=== PATIENT | male | born 1965 | race Caucasian/White ===

== ENCOUNTER 2020-02-06 05:36 | Outpatient (RCR) | payer BC ==
[~2020-02-06] VITALS: Ht 170.2 cm; Wt 145.5 kg
[2020-02-06 11:48] VITALS: BP 128/71
[2020-02-06] MEDS ORDERED: EPLE25TA4 PO (11:57)
[2020-02-06] MEDS ORDERED: AMIO400T5 PO (12:14)
[2020-02-06] MEDS ORDERED: RIVA20TA PO (12:14)
[2020-02-06] MEDS ORDERED: ATOR40TA70 PO (12:14)
[2020-02-06] MEDS ORDERED: FURO-124 PO (12:14)
[2020-02-06] MEDS ORDERED: CLOP75TA69 PO (12:14)
[2020-02-06] MEDS ORDERED: CARV25TA PO (12:14)
[2020-02-06] MEDS ORDERED: SACU1TAB2 PO (12:14)
[2020-02-11] MEDS ORDERED: ACET1TAB43 PO (11:50)
[2020-02-11] MEDS ORDERED: SULF1TAB34 PO (11:50)
== END 2020-02-06 14:05 | disposition home or self-care (01) ==
LOC: PREOP 05:36
PROVIDERS: ATTEND Radiology Radiation Oncology
DX: Z01.812 Encounter for preprocedural laboratory examination (principal); Z20.828 Contact with and (suspected) exposure to other viral communicable diseases; C61 Malignant neoplasm of prostate
CPT/HCPCS: 87081; 87635

== ENCOUNTER 2020-02-11 10:37 | Day surgery (SDC) | payer BC ==
[2020-02-11] VITALS (9 sets, daily range): BP systolic 117–148; BP diastolic 77–95
[~2020-02-11] VITALS: Ht 170.2 cm; Wt 145.5 kg
[~2020-02-11 10:37] MED LIST: AMIO400T5 PO; ATOR40TA70 PO; CARV25TA PO; CLOP75TA69 PO; EPLE25TA4 PO; FURO-124 PO; RIVA20TA PO; SACU1TAB2 PO
[2020-02-11] MEDS ORDERED: LACTATED RINGERS 1,000 ML IV PRN (10:41)
[2020-02-11] MEDS ORDERED: LEVOFLOXACIN 500 MG/100 ML IV 100 ML IV ONE (10:45)
--- OUTSIDE RECORDS SUMMARY | 2020-02-11 11:19 | XMS REPORT | Continuity of Care Document ---
Author Organization Unknown Address Unknown Phone Unavailable Allergies Active Description Code Type Severity Reaction Onset Reported/Identified Relationship to Patient Clinical Status Yes No Known Drug Allergies [id number] Drug Allergy Unknown N/A 02/06/2020 Medications There is no data. Problems Date Dx Coded Attending Type Code Diagnosis Diagnosed By 01/23/2020 FABIAN FISH MD, Ot C61 MALIGNANT NEOPLASM OF PROSTATE 01/29/2020 FABIAN FISH MD, Ot C61 MALIGNANT NEOPLASM OF PROSTATE 02/06/2020 FABIAN FISH MD, Ot C61 MALIGNANT NEOPLASM OF PROSTATE 02/10/2020 FABIAN FISH MD, Ot C61 MALIGNANT NEOPLASM OF PROSTATE Procedures There is no data. Results Test Result Range Methicillin resistant Staphylococcus aur eus (MRSA) screening culture - 02/06/20 12:05 Methicillin resistant Staphylococcus aureus (MRSA) scr eening culture NEG NRG Coronavirus SARS-CoV-2 SO 2018 - 0 12:40 Coronavirus Ab [Units/volume] in Serum Negative Negative Encounters ACCT No. Visit Date/Time Discharge Status Pt. Type Provider Facility Loc./Unit Complaint [id number] 02/06/2020 05:36:00 020 14:05:00 DIS Outpatient FABIAN FISH MD [facility] PREOP PROSTATE CANCER [id number] 12/31/2019 10:37:00 020 23:59:59 CLS Outpatient FABIAN FISH MD [facility] ONC [id number] 02/11/2020 10:37:[address] Outpatient FABIAN FISH MD [facility] PROSTATE CANCER
--- NOTE | 2020-02-11 11:42 | Progress Note-Pre Operative ---
Pre-Operative Progress Note H&P Reviewed The H&P was reviewed, patient examined and no changes noted. Date Seen by Provider: Feb 11, 2020 Time Seen by Provider: 11:41 Date H&P Reviewed: Feb 11, 2020 Time H&P Reviewed: 11:41 Pre-Operative Diagnosis: Prostate cancer cT1c, PSA 6.7, [place] 7 (3+4) FABIAN FISH MD Feb 11, 2020 11:42
[2020-02-11] MEDS ORDERED: SULF1TAB34 PO (11:50)
[2020-02-11] MEDS ORDERED: ACET1TAB43 PO (11:50)
--- NOTE | 2020-02-11 11:54 | Discharge Inst-Simple/Standard ---
Discharge Inst-Standard Reconcile Patient Problems Problems Reviewed?: Yes Discharge Medications New, Converted or Re-Newed RX: RX Given to Pt/Family Patient Instructions/Follow Up Plan of Care/Instructions/FU: 1) One month post implant scan at [facility] 03/10/20 at 10:00 am 2) One month post implant f/u with Dr. Chavez 03/10/20 at 1:35 pm Activity as Tolerated: Yes Discharge Diet: No Restrictions Other Inst to Patient Please instruct patient on corcoran catheter removal. Date to be determined by Dr. Foley. FABIAN FISH MD Feb 11, 2020 11:54
[2020-02-11] MEDS ORDERED: BACITRACIN OINTMENT 28 GM TUBE ONE (12:07)
[2020-02-11] MEDS ORDERED: ONDANSETRON 4 MG/2 ML (SDV) Z0FRAN ONE (12:12)
[2020-02-11] MEDS ORDERED: LIDOCAINE PF 2% 5 ML (XYLOCAINE) VIAL ONE (12:12)
[2020-02-11] MEDS ORDERED: SEVOFLURANE (ULTANE) 15 ML INHAL SOLN ONE (12:12)
[2020-02-11] MEDS ORDERED: fentaNYL INJECTION 100 MCG/2 ML AMP ONE ×2 (12:12→13:32)
[2020-02-11] MEDS ORDERED: proPOfol 200 MG/20 ML (DIPRIVAN) VIAL IV ONE (12:12)
[2020-02-11] MEDS ORDERED: MIDAZOLAM 2 MG/2 ML (VERSED) VIAL ONE (12:12)
[2020-02-11] MEDS ORDERED: DEXAMETHASONE 10 MG/ML (DECADRON) 1 ML VIAL ONE (12:12)
[2020-02-11] MEDS ORDERED: SUCCINYLCHOLINE INJ 100 MG/5 ML SYR ONE (12:26)
--- NOTE | 2020-02-11 14:35 | Progress Note-Post Operative ---
Post-Operative Progess Note Surgeon (s)/Churn Drill Operator (s) Surgeon FABIAN FISH MD Churn Drill Operator: Radha PAYTON MD Pre-Operative Diagnosis Prostate cancer cT1c, PSA 6.7, [place] 7 (3+4) Post-Operative Diagnosis Same as pre-op Procedure & Operative Findings Date of Procedure 02/11/20 Procedure Performed/Findings (1)100% Cesium 131 permanent prostate seed implant (2) Injection of biodegradable hydrogel prostate-rectal spacer utilizing the SpaceOAR system (3) Cystogram Prostate volume 36.9 cc Anesthesia Type General Estimated Blood Loss Estimated blood loss (mL): Minimal Specimens/Packing Specimens Removed None Packing: None FABIAN FISH MD Feb 11, 2020 14:35
[2020-02-11] MEDS ORDERED: ONDANSETRON 4 MG/2 ML (SDV) Z0FRAN IVP PRN (14:45)
[2020-02-11] MEDS ORDERED: morphine INJ 10 MG/ML 1ML (SYR OR VIAL) IVP ONE (14:45)
--- NOTE | 2020-02-11 14:54 | Diagnostic Imaging Report ---
INDICATION: Fluoroscopy for brachytherapy. TECHNIQUE: Fluoroscopy was provided during brachytherapy. 11 seconds of fluoroscopic time was utilized. A single image was obtained demonstrating radiation seed implants within the prostate gland. IMPRESSION: Fluoroscopy for brachytherapy. Dictated by: Dictated on workstation # [id number]
--- NOTE | 2020-02-11 14:55 | Anesthesia-General Post-Op ---
General Patient Condition Mental Status/LOC: Same as Preop Cardiovascular: Satisfactory Nausea/Vomiting: Absent Respiratory: Satisfactory Pain: Controlled Complications: Absent Post Op Complications Complications None Follow Up Care/Instructions Patient Instructions None needed. Anesthesia/Patient Condition Patient Condition Patient is doing well, no complaints, stable vital signs, no apparent adverse anesthesia problems. ADRIANA MAURICE DO Feb 11, 2020 14:55
== END 2020-02-11 16:25 | disposition home or self-care (01) ==
LOC: SDC 10:37
PROVIDERS: ATTEND Radiology Radiation Oncology
DX: C61 Malignant neoplasm of prostate (principal); I25.10 Atherosclerotic heart disease of native coronary artery without angina pectoris; E78.5 Hyperlipidemia, unspecified; I11.0 Hypertensive heart disease with heart failure; I50.9 Heart failure, unspecified; E66.01 Morbid (severe) obesity due to excess calories; I73.9 Peripheral vascular disease, unspecified; I77.9 Disorder of arteries and arterioles, unspecified; E78.2 Mixed hyperlipidemia; M19.90 Unspecified osteoarthritis, unspecified site; Z79.899 Other long term (current) drug therapy; Z79.891 Long term (current) use of opiate analgesic; Z68.43 Body mass index [BMI] 50.0-59.9, adult; Z80.49 Family history of malignant neoplasm of other genital organs; Z80.0 Family history of malignant neoplasm of digestive organs
CPT/HCPCS: 55874; 55875; 76000; 76965; 77290; 77318; 77332; 77370; 77470; 77778; C1715 ×2; C2643

== ENCOUNTER 2020-03-16 09:07 | Outpatient (RCR) | payer BC ==
[~2020-03-16 09:07] MED LIST changes: +ACET1TAB43 PO; +SULF1TAB34 PO
== END 2020-03-30 | disposition home or self-care (01) ==
LOC: ONC 09:07
PROVIDERS: ATTEND Radiology Radiation Oncology
DX: C61 Malignant neoplasm of prostate (principal)
CPT/HCPCS: 76873; G0463; 77290; 99205

== ENCOUNTER → 2020-04-15 | Outpatient (CLI) | payer BC | LOC: EDSTATUS 03-31 09:15 → ONC 10:45 | PROVIDERS: ATTEND Radiology Radiation Oncology | DX: C61 Malignant neoplasm of prostate (principal) | CPT/HCPCS: 77295 ==